=== PATIENT | female | born 1990 | race Caucasian/White ===

== ENCOUNTER 2024-11-21 13:35 | Emergency (ER) | payer BC, SELFPAY ==
--- OUTSIDE RECORDS SUMMARY | 2024-07-15 23:59 | XMS_ITS ---
Author Organization [id number] Care Team Providers Care Promotional Representative Name Role Phone Alessandra, Arias Unavailable Gela Rosenbaum Unavailable Alessandra, Arias Unavailable Unavailable Gela Rosenbaum Unavailable Unavailabl e JIM PARIS Unavailable Unavailable GELA REYES Unavailable Unavailable Alessandra, Arias Unavailable PEE VU Unavailable Unavailable GELA REYES Primary Care Provider Unavailabl e GELA ROSENBAUM Primary Care Provider Unav ailable Gela Rosenbaum Primary Care Provider Unav ailable Gela Rosenbaum Primary Care Provider Nahomi Starr Primary Care Provider Unavailabl e Allergies and Adverse Reactions Allergen Type Allergen Reactions Criticality Status Onset Date Resolution Date Documentation Date Authors Informants [facility] Allergy to drug (finding) NI active [facility] Kristine Harris ([facility]) Allergy to drug (finding) NI active [facility] Kristine Harris ([facility]) Allergy to drug (finding) Drug allergy (disorder ) active [facility] Kristine Harris ([facility]) Allergy to drug (finding) Drug allergy (disorder ) active [facility] Kristine Harris ([facility]) Allergy to drug (finding) NI active [facility] Kristine Harris ([facility]) Allergy to drug (finding) NI active [facility] Kristine Harris ([facility]) Allergy to drug (finding) NI active [facility] Kristine Harris ([facility]) Allergy to drug (finding) Drug allergy (disorder ) active [facility] Kristine Harris ([facility]) Medications Medication Sig Status Start Date End Date Authors Informant s insulin aspart, human 100 UNT/ML Injectable Solution [NovoLog] INJECT 20 UNITS TWICE DAILY , UP TO 60 UNITS A DAY VIA INSULIN PUMP DIRECTED 01/15/2024 09:32:00 AM Franny Rossi (Endocrinology [facility]) 3 ML insulin degludec 100 UNT/ML Pen Injector [Tresiba] 20 unit(s), Subcutaneous, daily, take on in case of insulin pump failure, # 15 mL, 6 Refill(s), Pharmacy: [facility]/pharmacy #[id number], 165, 09/16/23 9:45:00 EDT, Height/Length, cm, 56.245, 09/16/23 9:45:00 EDT, Weight Measured, kg 12/18/2023 12:54:00 PM Arias Aparicio (Endocrinology [facility]) insulin aspart, human 100 UNT/ML Injectable Solution [NovoLog] 20 unit(s), Subcutaneous, bid, upto 60 units a day via insulin pump as directed, # 20 mL, 5 Refill(s), Pharmacy: [facility]/pharmacy #[id number], 165, 09/16/23 9:45:00 EDT, Height/Length, cm, 56.245, 09/16/23 9:45:00 EDT, Weight Measured, kg 12/16/2023 09:54:00 AM Arias Aparicio (Endocrinology [facility]) Problems Problem Type Problem Status Onset Date Resolution Date Documentation Date Authors Informants Diagnosis interpretati on (observable entity) Non-toxic multinodula r goiter (disorder) 2024 10:40: 00 PM Diagnosis interpretati on (observable entity) Hyperglycem ia due to type 1 diabetes mellitus (disorder) 2024 10:40: 00 PM Diagnosis interpretati on (observable entity) Insulin pump present (finding) 2024 10:40: 00 PM Diagnosis interpretati on (observable entity) Insulin pump present (finding) 2024 11:00: 00 AM Diagnosis interpretati on (observable entity) Hyperglycem ia due to type 1 diabetes mellitus (disorder) 2024 10:59: 00 AM Diagnosis interpretati on (observable entity) Non-toxic multinodula r goiter (disorder) 2024 10:59: 00 AM Diagnosis interpretati on (observable entity) Hyperglycem ia due to type 1 diabetes mellitus (disorder) 2023 10:56: 00 PM Diagnosis interpretati on (observable entity) Non-toxic multinodula r goiter (disorder) 2023 10:56: 00 PM Diagnosis interpretati on (observable entity) Long-term current use of insulin (situation) 2023 10:56: 00 PM Problem (finding) Hyperglycem ia due to type 1 diabetes mellitus (disorder) Active (qualif ier value) 05/08/2022 11:40:39 AM [facility] Arias Aparicio (Endocrinol lorri [facility]) Sudden idiopathic hearing loss, left ear [facility] Problem (finding) Multinodula r goiter (disorder) Active (qualif ier value) 05/08/2022 11:40:42 AM [facility] Arias Alessandra ([facility]ocrinol o[facility] [place]) Problem (finding) Long-term current use of insulin (situation) Active (qualif ier value) 05/08/2022 11:40:41 AM [facility] Arias Alessandra ([facility] [place]) Problem (finding) Multinodula r goiter (disorder) Active (qualif ier value) 05/08/2022 11:40:42 AM [facility] Arias Alessandra ([facility] [place]) Sudden idiopathic hearing loss, [facility] ear [facility] 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 [facility] Problem (finding) Multinodula r goiter (disorder) Active (qualif ier value) 05/08/2022 11:40:42 AM [facility] Arias Alessandra ([facility] [place]) Problem (finding) Multinodula r goiter (disorder) Active (qualif ier value) 05/08/2022 11:40:42 AM [facility] Arias Alessandra ([facility] [place]) Problem (finding) Hyperglycem ia due to type 1 diabetes mellitus (disorder) Active (qualif ier value) 05/08/2022 11:40:39 AM [facility] Arias Alessandra ([facility] [place]) Problem (finding) Hyperglycem ia due to type 1 diabetes mellitus (disorder) Active (qualif ier value) 05/08/2022 11:40:39 AM [facility] Arias Alessandra ([facility] [place]) Problem (finding) Long-term current use of insulin (situation) Active (qualif ier value) 05/08/2022 11:40:41 AM [facility] Arias Alessandra ([facility] [place]) Problem (finding) Insulin pump present (finding) Active (qualif ier value) 04/12/2024 11:00:44 AM [facility] Arias Alessandra ([facility] [place]) Problem (finding) Long-term current use of insulin (situation) Active (qualif ier value) 05/08/2022 11:40:41 AM [facility] Arias Alessandra ([facility] [place]) Problem (finding) Multinodula r goiter (disorder) Active (qualif ier value) 05/08/2022 11:40:42 AM [facility] Arias Alessandra ([facility] [place]) Problem (finding) Multinodula r goiter (disorder) Active (qualif ier value) 05/08/2022 11:40:42 AM [facility] Arias Alessandra ([facility] [place]) Problem (finding) Hyperglycem ia due to type 1 diabetes mellitus (disorder) Active (qualif ier value) 05/08/2022 11:40:39 AM [facility] Arias Alessandra ([facility] [place]) Tinnitus, left ear [facility] Problem (finding) Hyperglycem ia due to type 1 diabetes mellitus (disorder) Active (qualif ier value) 05/08/2022 11:40:39 AM [facility] Arias Alessandra ([facility] [place]) Problem (finding) Hyperglycem ia due to type 1 diabetes mellitus (disorder) Active (qualif ier value) 05/08/2022 11:40:39 AM [facility] Raias Alessandra ([facility]ol [facility] [place]) Problem (finding) Long-term current use of insulin (situation) Active (qualif ier value) 05/08/2022 11:40:41 AM [facility] Arias Alessandra ([facility] [place]) Problem (finding) Multinodula r goiter (disorder) Active (qualif ier value) 05/08/2022 11:40:42 AM [facility] Arias Alessandra ([facility] [place]) Impacted cerumen, bilateral [facility] Presence of insulin pump (external) (internal) [facility] Nontoxic multinodula r goiter [facility] Other specified disorders of ear, bilateral [facility] Problem (finding) Hyperglycem ia due to type 1 diabetes mellitus (disorder) Active (qualif ier value) 05/08/2022 11:40:39 AM [facility] Arias Alessandra ([facility]ocr[facility]ol [facility] [place]) Personal history of other endocrine, nutritional and metabolic disease [facility] Sensorineur al hearing loss, unilateral, left ear, with unrestricte d hearing on the contralater al side [facility] Problem (finding) Long-term current use of insulin (situation) Active (qualif ier value) 05/08/2022 11:40:41 AM [facility] Arias Alessandra ([facility]ol [facility] [place]) Problem (finding) Long-term current use of insulin (situation) Active (qualif ier value) 05/08/2022 11:40:41 AM [facility] Arias Alessandra ([facility]ol [facility] [place]) Problem (finding) Hyperglycem ia due to type 1 diabetes mellitus (disorder) Active (qualif ier value) 05/08/2022 11:40:39 AM [facility] Arias Alessandra ([facility]ol [facility] [place]) 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 [facility] Problem (finding) Insulin pump present (finding) Active (qualif ier value) 04/12/2024 11:00:44 AM [facility] Arias Alessandra ([facility]ol [facility] [place]) Unspecified perforation of tympanic membrane, left ear [facility] Problem (finding) Long-term current use of insulin (situation) Active (qualif ier value) 05/08/2022 11:40:41 AM [facility] Arias Alessandra ([facility]ol [facility] [place]) Problem (finding) Long-term current use of insulin (situation) Active (qualif ier value) 05/08/2022 11:40:41 AM [facility] Arias Alessandra ([facility]ol [facility] [place]) Problem (finding) Hyperglycem ia due to type 1 diabetes mellitus (disorder) Active (qualif ier value) 05/08/2022 11:40:39 AM [facility] Arias Alessandra ([facility] [place]) Problem (finding) Multinodula r goiter (disorder) Active (qualif ier value) 05/08/2022 11:40:42 AM [facility] Arias Alessandra (Endocrinol o[facility] [place]) Type 1 diabetes mellitus with hyperglycem [facility] Nontoxic multinodula r goiter [facility] Type 1 diabetes mellitus with hyperglycem [facility] [place] Problem (finding) Multinodula r goiter (disorder) Active (qualif ier value) 05/08/2022 11:40:42 AM [facility] Arias Alessandra ([facility]ol [facility] [place]) Problem (finding) Long-term current use of insulin (situation) Active (qualif ier value) 05/08/2022 11:40:41 AM [facility] Arias Alessandra (Endocrinol o[facility] [place]) Procedures Procedure Date Performers Authors Informants Note None Arias Alessandra ([facility]inology [facility] [place]) Results Written Authorization Result Value Reference Range Date Interpretation Method Target Site Authors Informants Written Authorization NWAR 08/07 11:00 AM [facility] No Written Authorization Rec eived. Performed At: [facility] [address] [place] [address], [id number] Kandis Luu MD, Phone: [phone] Lipid Panel Result Value Reference Range Date Interpretation Method Target Site Authors Informants HDL Cholesterol 62 mg/dL >39 07/17 01:48 AM [facility] VLDL Cholesterol Mario Alberto 12 mg/dL 5-40 07/17 01:48 AM [facility] LDL Chol Calc (NIH) 84 mg/dL 0-99 07/17 01:48 AM [facility] LDL Calc Comment: 07/17 01:48 AM [facility] Cholesterol, Total 158 mg/dL 100-199 07/17 01:47 AM [facility] Triglycerides 62 mg/dL 0-149 07/17 01:44 AM Sami RN Performed At: RN, [facility] [address], [id number] Kandis Luu MD, Phone: [phone] Microscopic Examination Result Value Reference Range Date Interpretation Method Target Site Authors Informants WBC 0 - 5 2024 01:02 AM [facility] RN RBC 0 - 2 2024 01:02 AM [facility] RN Epithelial Cells (non renal) 0 - 10 2024 01:02 AM [facility] RN Epithelial Cells (renal) 2024 01:02 AM [facility] RN Casts None seen 2024 01:02 AM [facility] RN Cast Type 2024 01:02 AM [facility] RN Crystals 2024 01:02 AM [facility] RN Crystal Type 2024 01:02 AM [facility] RN Mucus Threads 2024 01:02 AM [facility] RN Bacteria None seen None seen/Few 2024 01:02 AM [facility] RN Yeast 2024 01:02 AM [facility] RN Trichomonas 2024 01:02 AM [facility] RN Comment 2024 01:02 AM [facility] RN Performed At: RN, [facility] [address] [place] [address], [id number] Kandis Luu MD, Phone: [phone] Urinalysis, Routine Result Value Reference Range Date Interpretation Method Target Site Authors Informants Specific [place] 1.008 1.005-1.03 0 07/16 12:19 AM [facility] RN pH 6.0 5.0-7.5 07/16 12:19 AM [facility] RN Urine-Color Yellow Yellow 07/16 12:19 AM [facility] RN Appearance Clear Clear 07/16 12:19 AM [facility] RN WBC Esterase 3+ Negative 07/16 12:19 AM A [facility] RN Protein Negative Negative/T race 07/16 12:19 AM [facility] RN Glucose Negative Negative 07/16 12:19 AM [facility] RN Ketones Negative Negative 07/16 12:19 AM [facility] RN Occult Blood Negative Negative 07/16 12:19 AM [facility] RN Bilirubin Negative Negative 07/16 12:19 AM [facility] RN Urobilinogen, Semi-Qn 0.2 mg/dL 0.2-1.0 07/16 12:19 AM [facility] RN Nitrite, Urine Negative Negative 07/16 12:19 AM [facility] RN Microscopic Examination See below: 07/16 12:19 AM [facility] RN Microscopic was indicated an d was performed. Performed At: RN, [facility] [address] [place] [address], [id number] Kandis Luu MD, Phone: [phone] Comp. Metabolic Panel (14) Result Value Reference Range Date Interpretation Method Target Site Authors Informants Calcium 9.0 mg/dL 8.7-10.2 2024 01:45 AM [facility] RN Protein, Total 6.6 g/dL 6.0-8.5 2024 12:25 AM [facility] RN Globulin, Total 2.1 g/dL 1.5-4.5 2024 12:25 AM [facility] RN Bilirubin, Total 0.3 mg/dL 0.0-1.2 2024 12:22 AM [facility] RN BUN 8 mg/dL 6-20 2024 12:20 AM [facility] RN BUN/Creatinin e Ratio 13 9-23 2024 12:20 AM [facility] RN Alkaline Phosphatase 75 IU/L 44-121 2024 12:20 AM [facility] RN Glucose 117 mg/dL 70-99 2024 12:19 AM Above high normal [facility] RN Creatinine 0.63 mg/dL 0.57-1.00 2024 12:19 AM [facility] RN eGFR 119 mL/min/ 1.73 >59 2024 12:19 AM [facility] RN Albumin 4.5 g/dL 3.9-4.9 2024 12:19 AM [facility] RN AST (SGOT) 16 IU/L 0-40 2024 12:19 AM [facility] RN ALT (SGPT) 11 IU/L 0-32 2024 12:19 AM [facility] RN Carbon Dioxide, Total 26 mmol/L 20-29 2024 12:18 AM [facility] RN Potassium 4.1 mmol/L 3.5-5.2 2024 11:48 PM [facility] RN Sodium 137 mmol/L 134-144 2024 11:46 PM [facility] RN Chloride 100 mmol/L 96-106 2024 11:46 PM [facility] RN Performed At: [facility] [address] [place] [address], [id number] Kandis Luu MD, Phone: [phone] Diabetes Patient Education Result Value Reference Range Date Interpretation Method Target Site Authors Informants PDF . 2023 04:24 PM [facility] Performed At: [employer] [address] [facility], [place], [place], [id number] Paco Black MD, Phone: [phone] Albumin/Creatinine Ratio,Urine Result Value Reference Range Date Interpretation Method Target Site Authors Informants Albumin, Urine Not Estab. 2023 03:47 PM [facility] RN Alb/Creat Ratio 0-29 2023 03:47 PM [facility] RN Normal: 0 - 29 Moderately increased: 30 - 300 Severely increased: >300 Creatinine, Urine 39.2 mg/dL Not Estab. 2023 03:46 PM [facility] RN Performed At: [facility] [place], [place], [id number] Kandis Luu MD, Phone: [phone] TSH reflex to T4F Result Value Reference Range Date Interpretation Method Target Site Authors Informants TSH 1.180 uIU/mL 0.450-4.500 2023 05:15 AM [facility] RN Performed At: [facility] [place], [place], [id number] Kandis Luu MD, Phone: [phone] Lipid Panel Result Value Reference Range Date Interpretation Method Target Site Authors Informants Cholesterol, Total 122 mg/dL 100-199 01/13 04:40 AM [facility] RN Triglycerides 63 mg/dL 0-149 01/13 04:40 AM [facility] RN HDL Cholesterol 51 mg/dL >39 01/13 04:40 AM [facility] RN VLDL Cholesterol Mario Alberto 13 mg/dL 5-40 01/13 04:40 AM [facility] RN LDL Chol Calc ([facility]) 58 mg/dL 0-99 01/13 04:40 AM [facility] RN LDL Calc Comment: 01/13 04:40 AM [facility] RN Performed At: [facility] [address] [place] [address], [id number] Kandis Luu MD, Phone: [phone] Comp. Metabolic Panel (14) Result Value Reference Range Date Interpretation Method Target Site Authors Informants Potassium 4.8 mmol/L 3.5-5.2 2023 04:41 AM [facility] RN Sodium 137 mmol/L 134-144 2023 04:[address] [facility] RN Chloride 102 mmol/L 96-106 2023 04:40 AM [facility] RN Albumin 4.2 g/dL 3.9-4.9 2023 04:39 AM [facility] RN Globulin, Total 2.0 g/dL 1.5-4.5 2023 04:39 AM [facility] RN Protein, Total 6.2 g/dL 6.0-8.5 2023 04:37 AM [facility] RN Glucose 308 mg/dL 70-99 2023 04:36 AM Above high normal [facility] RN BUN 9 mg/dL 6-20 2023 04:36 AM [facility] RN Creatinine 0.61 mg/dL 0.57-1.00 2023 04:36 AM [facility] RN eGFR 120 mL/min/ 1.73 >59 2023 04:36 AM [facility] RN BUN/Creatinin e Ratio 15 9-23 2023 04:36 AM [facility] RN Carbon Dioxide, Total 23 mmol/L 20-29 2023 04:36 AM [facility] RN Calcium 8.6 mg/dL 8.7-10.2 2023 04:36 AM Below low normal [facility] RN Bilirubin, Total 0.3 mg/dL 0.0-1.2 2023 04:36 AM [facility] RN Alkaline Phosphatase 73 IU/L 44-121 2023 04:36 AM [facility] RN AST (SGOT) 10 IU/L 0-40 2023 04:36 AM [facility] RN ALT (SGPT) 6 IU/L 0-32 2023 04:36 AM [facility] RN Performed At: [facility] [address] [place] [address], [id number] Kandis Luu MD, Phone: [phone] Hemoglobin A1c Result Value Reference Range Date Interpretation Method Target Site Authors Informants Hemoglobin A1c 7.6 % 4.8-5.6 2023 01:52 AM Above high normal [facility] . Prediabetes: 5.7 - 6.4 Diabetes: >6.4 Glycemic control for adults with diabetes: <7.0 Performed At: [facility] [address] [place] [address], [id number] Kandis Luu MD, Phone: [phone] Encounters Encounter Location Date Diagnoses Problems Providers Authors Inf ormants Note O ENDF 07/15 08:45 :48 AM - 07/15 11:59 :59 PM Type 1 diabetes mellitus with hyperglycemi a Nontoxic multinodular goiter Presence of insulin pump (external) (internal) Admitter: Arias Aparicio ([facility]) Referrer: Gela Rosenbaum ([facility]) Attender: Arias Aparicio ([facility]) [facility] O [id number] 08/07 11:05 AM [facility] O [id number] 07/16 08:35 AM [facility] ([address] [place] [address], [address] [place] [address]) 07/15 08:45 :48 AM - 07/15 11:59 :59 PM Hyperglycemi a due to type 1 diabetes mellitus (disorder) Insulin pump present (finding) Non-toxic multinodular goiter (disorder) Referrer: Gela Rosenbaum ([facility]) Attender: Arias Aparicio ([facility]) Arias Aparicio ([facility]) Gela Rosenbaum ([facility]) [facility] 04/28 11:40 :30 AM Sensorineura l hearing loss, unilateral, left ear, with unrestricted hearing on the contralatera l side Tinnitus, left ear Sudden idiopathic hearing loss, left ear Personal history of other endocrine, nutritional and metabolic disease Impacted cerumen, bilateral Other specified disorders of ear, bilateral Referrer: GELA REYES ([facility]) Attender: PEE VU ([facility]) [facility] 04/28 11:39 :31 AM - 04/28 12:10 :34 PM Sensorineura l hearing loss, unilateral, left ear, with unrestricted hearing on the contralatera l side Tinnitus, left ear Referrer: GELA REYES ([facility]) Attender: JIM PARIS ([facility]) [facility] O ENDF 04/12 11:01 :14 AM - 04/12 11:59 :59 PM Type 1 diabetes mellitus with hyperglycemi a Nontoxic multinodular goiter Presence of insulin pump (external) (internal) Admitter: Arias Aparicio ([facility]) Referrer: Gela Rosenbaum ([facility]) Attender: Arias Aparicio ([facility]) 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: Arias Aparicio ([facility]) [facility] ([address] [place] [address], [address] [place], [place] [address]) 04/12 11:01 :14 AM - 04/12 11:59 :59 PM Hyperglycemi a due to type 1 diabetes mellitus (disorder) Non-toxic multinodular goiter (disorder) Insulin pump present (finding) Referrer: Gela Rosenbaum ([facility]) Attender: Arias Aparicio ([facility]) Arias Aparicio ([facility]) Gela Rosenbaum ([facility]) [facility] 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 (1) 03/23 10:53 :35 AM - 03/23 11:59 :59 PM [facility] ([address] [place] [address], [address] [place] [address]- ) 01/14 09:30 :12 AM - 01/14 11:59 :59 PM Hyperglycemi a due to type 1 diabetes mellitus (disorder) Non-toxic multinodular goiter (disorder) Long-term current use of insulin (situation) Referrer: Gela Rosenbaum ([facility]) Attender: Arias Aparicio ([facility]) Arias Aparicio ([facility]) Gela Rosenbaum ([facility]) [facility]ocrin[facility] O ENDF 01/14 09:30 :12 AM Type 1 diabetes mellitus with hyperglycemi a Nontoxic multinodular goiter [facility] (current) use of insulin Admitter: Arias Aparicio ([facility]) Referrer: Gela Rosenbaum ([facility]) Attender: Arias Aparicio ([facility]) [facility] O [id number] 01/13 05:05 PM [facility] Insurance Providers Payer name Policy type / Coverage type Policy ID Covered alliance party ID Covered alliance party's relationship to ward Policy Ward Plan Information [facility] PROACTIVE EXCHANGE Self VERONICA LARISSA [id number] [facility] PRO[facility] Self VERONICA LARISSA [id number] [employer] 9 [id number] VERONICA LARISSA [employer] 9 [id number] VERONICA LARISSA [employer] 9 [id number] VERONICA LARISSA [employer] 9 [id number] VERONICA LARISSA [employer] 9 [id number] VERONICA LARISSA [employer] 9 [id number] VERONICA LARISSA [facility] PRO[facility]CH[facility] Self VERONICA LARISSA [id number] [employer] [id number] [employer] [id number] [employer] NI [id number] [employer] 9 [id number] VERONICA LARISSA [employer] 9 [id number] VERONICA LARISSA Social History Social History Value Effective Dates Authors Infor gias Tobacco smoking status Never smoked tobacco (finding) 01/15/2024 01:32:39 PM Franny Rossi ([facility] [place]) Tobacco smoking status Never smoked tobacco (finding) 01/15/2024 01:32:39 PM Franny Rossi ([facility]ocrin[facility] [place]) Tobacco smoking status Never smoked tobacco (finding) 01/15/2024 01:32:39 PM Franny Rossi ([facility]ocrin[facility] [place]) Tobacco smoking status Never smoked tobacco (finding) 01/15/2024 01:32:39 PM Franny Rossi ([facility] [place]) Tobacco smoking status Never 01/15/2024 01:32:39 PM Franny Rossi ([facility] [place]) Tobacco smoking status Never 09/16/2023 01:48:54 PM Franny Rossi ([facility] [place]) Tobacco smoking status Never 01/15/2024 01:32:39 PM Franny Rossi ([facility] [place]) Tobacco smoking status Never 01/15/2024 01:32:39 PM Franny Rossi ([facility] [place]) Tobacco smoking status Never 05/08/2022 06:49:54 PM Arias Alessandra ([facility]in[facility] [place]) Tobacco smoking status Never 05/08/2022 06:49:54 PM Arias Alessandra ([facility] [place]) Tobacco smoking status Never 05/08/2022 06:49:54 PM Arias Alessandra ([facility] [place]) Tobacco smoking status Never 01/15/2024 01:32:39 PM Franny Rossi ([facility] [place]) Tobacco smoking status Never 05/08/2022 06:49:54 PM Arias Alessandra ([facility] [place]) Vital Signs Vital Sign Value Time Taken Authors Informants Body height 65 [in_i] 01/15/2024 09:30:00 AM [facility] Franny Rossi (Endocrinology [place]) Body height 165.10 cm 01/15/2024 09:30:00 AM [facility] Franny Rossi (Endocrinology [place]) Body weight Measured 56.699 kg 01/15/2024 09:30:00 AM [facility] Franny Rossi (Endocrinology [place]) Body mass index (BMI) [Ratio] 21 kg/m2 01/15/2024 09:30:00 AM [facility] Franny Rossi (Endocrinology [place]) Body height 65.5 [in_i] 04/12/2024 11:11:00 AM [facility] Becky Seals (Endocrin[facility] [place]) Body height 166 cm 04/12/2024 11:11:00 AM [facility] Becky Seals (Endocrinology [place]) Body weight Measured 56 kg 04/12/2024 11:11:00 AM [facility] Becky Seals (Endocrinology [place]) Body mass index (BMI) [Ratio] 20 kg/m2 04/12/2024 11:11:00 AM [facility] Becky Seals (Endocrinology [facility])
[2024-11-21 13:59] VITALS: BP 124/55; PULSE 84; RESP 17; TEMP 36.3; O2SAT 99; BMI 21.5
--- NOTE | 2024-11-21 14:03 | ED.GENADULT ---
HPI - General Adult General Chief complaint: Recheck/Abnormal Lab/Rx Stated complaint: high blood sugar type 1 diabetic Time Seen by Provider: 11/21/24 16:03 Source: patient and RN notes reviewed Mode of arrival: ambulatory Limitations: no limitations History of Present Illness ED Provider: Angela Figueroa PA-C HPI narrative: 34-year-old female with medical history of T1DM presents to the ED due to home elevated glucose readings with nausea and vomiting. Patient has an Omnipod insulin pump and CGM, last night CGM was alerting her of elevated glucose readings but she was sleeping in ignored the alert. Patient said when she woke up this morning she realized her Omnipod was leaking insulin and she was getting continuous elevated glucose readings. Patient also reports waking up this morning feeling ?out of it? and when asked her to explain this she states that she just felt ?off?, with nausea and 2 episodes of vomiting. Patient states she gave herself 7 units of insulin after breakfast, 7 units after elevated POC at home, and 7 additionally units while in the waiting room before eating a snack of crackers, applesauce, nuts and coconut water. Patient states her symptoms are improving. Denies recent illness, chest pain, shortness of breath, abdominal pain, diarrhea, black/tarry stool, urinary symptoms Related Data Allergies Allergy/AdvReac Type Severity Reaction Status Date / Time No Known Allergies Allergy Verified 11/21/24 14:05 Review of Systems Review of Systems: CONST: Negative for fever, body aches and chills. HENT: Negative for neck pain/stiffness, headache, congestion, sore throat, swelling. POS head fog, feeling off EYES: Negative for discharge/pain or vision changes. RESP: Negative for cough/hemoptysis and shortness of breath. CV: Negative chest pain, difficulty breathing, palpitations. ABD: Negative pain, nausea, vomiting. POS nausea, vomiting : Negative increase frequency, dysuria, blood in urine or stool. MUSC: Negative for muscle aches, edema. SKIN: Negative rash, lesions/sores. NEURO: Negative headache, dizziness, weakness. Yes all other systems are reviewed and are negative PMFSH Past Medical History Attestation statement: The following information was validated with the patient. Source: old records reviewed and nursing notes reviewed Social History Social History Advance Directives: No Advance Directives Information Provided: Yes Do you have a plan to hurt others: No Plan Physical Exam ED Vital Signs: Vital Signs - 24 hr 11/21/24 13:59 11/21/24 18:11 Temperature 97.4 F 98.1 F Pulse Rate 84 84 Respiratory Rate 17 18 Blood Pressure 124/55 L 128/59 L Pulse Oximetry 99 100 Oxygen Delivery Method Room Air Room Air BMI result Body Mass Index 21.5 GENERAL APPEARANCE: ?AxOx4, generally well-appearing, no acute distress. HEENT: ?NC, AT. MMM. EOMI, clear conjunctiva, oropharynx clear. NECK: ?Supple without lymphadenopathy.? No stiffness or restricted ROM. HEART:? Normal rate and regular rhythm, normal S1/S2, no m/r/g LUNGS:? CTAB, moving air well. No crackles or wheezes are heard, no increased work of breathing, no accessory muscle use, no Kussmaul respirations ABDOMEN: ?Soft, nontender, nondistended with good bowel sounds heard. BACK: No CVAT, no obvious deformity. EXTREMITIES: ?Without cyanosis, clubbing or edema. NEUROLOGICAL: ?Grossly nonfocal. Alert and oriented, moving all 4 extremities. Observed to ambulate with normal gait. Skin: ?Warm and dry without any rash. Course Course Course Narrative: Medical screening exam performed. Please refer to detailed history, exam, evaluation, and management by primary provider. Type 1 diabetes, insulin device became dislodged did not receive appropriate insulin but patient was able to dose herself. Glucose 395 at triage. Did have associated weakness, nausea and vomiting. Medications Administered Discontinued Medications Generic Name Dose Route Start Last Admin Trade Name Freq PRN Reason Stop Dose Admin Lactated Ringer's 1,000 mls @ 999 mls/hr 11/21/24 16:08 11/21/24 17:41 Lr IV 11/21/24 17:08 Infused .Q1H1M ONE Infusion Lactated Ringer's 1,000 mls @ 999 mls/hr 11/21/24 17:00 11/21/24 18:09 Lr IV 11/21/24 18:00 Infused .Q1H1M MANUEL Infusion Ondansetron HCl 4 mg 11/21/24 16:45 11/21/24 17:08 Ondansetron Hcl 4 Mg/2 Ml Vial IVPUSH 11/21/24 16:46 4 mg ONCE ONE Administration Medical Decision Making Medical Decision Making [facility] Narrative: 34-year-old female with medical history of T1DM presents to the ED due to home elevated glucose readings with nausea and vomiting. Patient has an Omnipod insulin pump and CGM, last night CGM was alerting her of elevated glucose readings but she was sleeping in ignored the alert. Patient said when she woke up this morning she realized her Omnipod was leaking insulin and she was getting continuous elevated glucose readings. Patient also reports waking up this morning feeling ?out of it? and when asked her to explain this she states that she just felt ?off?, with nausea and 2 episodes of vomiting. Patient states she gave herself 7 units of insulin after breakfast, 7 units after elevated POC at home, and 7 additional units while in the waiting room before eating a snack of crackers, applesauce, nuts and coconut water. Patient states her symptoms are improving. VS on initial observation-BP 124/55, pulse rate of 84, respiratory rate of 17, afebrile with oral temp of 97.4?, O2 saturation 99% on room air. On physical exam patient is well-appearing, in no acute distress, nontoxic appearing, alert and oriented x3, no Kussmaul breathing, no increased work of breathing, lungs clear to auscultation bilaterally, cardiac exam shows regular rate and rhythm without murmurs/rubs/gallops, abdomen soft, nondistended, nontender, no rigidity Course 17:44- Labs without leukocytosis, H and H stable with HGB of 11.9, HCT of 34.2. VBG with decrease HC03 at 20, sodium of 130, however this is pseudohyponatremia due to elevated blood glucose. Random glucose of 375, without anion gap, beta hydroxybutyrate elevated at 2.74. I am medicating patient with 2 L IV fluids, 4 mg Zofran for nausea. We will recheck BMP and beta hydroxybutyrate for improvement after fluids. 21:08- After fluid resuscitation, repeat BNP much improved. Lab work without anion gap, serum glucose 269, sodium of 139, beta hydroxybutyrate now at 0.13. Patient to be discharged home, I counseled her to follow up with her electro optical engineer and primary care provider as she may need to change her insulin regimen for better glycemic control. Differential Diagnosis Differential Diagnoses: The differential diagnosis associated with the presentation includes DKA Electrolyte abnormality Elevated blood glucose Admission/Observation Consideration of admission/observation: Escalation of care including admission/observation considered Lab Data [facility] Lab Attestation statement: I reviewed the patient's lab results. 11/21/24 14:58 11/21/24 14:58 Labs: Lab Results 11/21/24 11/21/24 11/21/24 Range/Units 14:03 14:58 15:01 WBC 10.6 (4.8-10.8) X10*3/uL RBC 4.07 L (4.20-5.50) X10*6/uL Hgb 11.9 L (12.0-16.0) g/dl Hct 34.2 L (37.0-47.0) % MCV 84.0 (80.0-98.0) fL MCH 29.2 (27.0-33.0) pg MCHC 34.8 (31.0-35.0) g/dl RDW 12.7 (11.0-16.0) % Plt Count 176 (160-400) X10*3/uL MPV 11.9 (9.4-12.3) fL Immature Gran % (Auto) 0.2 (0.0-0.4) % Neut % (Auto) 81.4 H (45-73) % Lymph % (Auto) 12.1 L (20-40) % [place] % (Auto) 5.3 (2-11) % Eos % (Auto) 0.5 (0-4) % Baso % (Auto) 0.5 (0-2) % Lymph # (Auto) 1.3 (1.2-4.9) X10*3/uL [place] # (Auto) 0.6 (0.1-1.2) X10*3/uL Eos # (Auto) 0.1 (0.0-0.4) X10*3/uL Baso # (Auto) 0.1 (0.0-0.2) X10*3/uL Abs Immat Gran (auto) 0.02 (0.00-0.03) X10*3/uL Absolute Neuts (auto) 8.6 H (2.0-8.3) x10*3/uL Absolute Nucleated RBC 0.000 (0.0-0.012) X10*3/uL Nucleated RBC % (auto) 0.0 (0.0-0.2) /100WBC VBG pH 7.32 (7.32-7.43) VBG pCO2 38 mmHg VBG pO2 36 mmHg VBG HCO3 20 L (22-26) mmol/L VBG O2 Saturation 51.0 % VBG Base Excess -5.5 mmol/L Sodium 130 L (135-145) mmol/L Potassium 4.5 (3.3-5.1) mmol/L Chloride 97 (96-108) mmol/L Carbon Dioxide 19 L (22-29) mmol/L Anion Gap 19 (12-20) BUN 18 H (9-16) mg/dL Creatinine 0.77 (0.5-1.4) mg/dL Estim Creat Clear Calc 91.7 Estimated GFR > 60 POC Glucose 395 H* (60-115) mg/dL Random Glucose 375 H* (60-115) mg/dL Calcium 9.1 (8.4-10.2) mg/dL Magnesium 1.7 (1.6-2.6) mg/dL Total Bilirubin 0.8 (0.0-1.0) mg/dL AST 21 (5-31) U/L ALT 17 (0-31) U/L Alkaline Phosphatase 84 (39-117) U/L Total Protein 7.3 (6.5-8.0) g/dL Albumin 4.8 (3.5-5.0) g/dL Lipase 10 (8-78) U/L Beta-Hydroxybutyrate 2.74 H (0.02-0.27) mmol/L Beta HCG, Quant < 2 mIU/mL Urine Color Urine Appearance Urine pH (5.0-9.0) Ur Specific [place] (1.005-1.025) Urine Protein (Neg-Trace) mg/dL Urine Glucose (UA) (Negative) mg/dL Urine Ketones (Negative) mg/dL Urine Blood (Negative) Urine Nitrite (Negative) Ur Leukocyte Esterase (Negative) Urine RBC (0-2) /HPF Urine WBC (0-5) /HPF Ur Squamous Epith Cells (0-2) /HPF Urine Bacteria (None Seen) Hyaline Casts (0-2) /LPF 11/21/24 11/21/24 Range/Units 16:49 19:06 WBC (4.8-10.8) X10*3/uL RBC (4.20-5.50) X10*6/uL Hgb (12.0-16.0) g/dl Hct (37.0-47.0) % MCV (80.0-98.0) fL MCH (27.0-33.0) pg MCHC (31.0-35.0) g/dl RDW (11.0-16.0) % Plt Count (160-400) X10*3/uL MPV (9.4-12.3) fL Immature Gran % (Auto) (0.0-0.4) % Neut % (Auto) (45-73) % Lymph % (Auto) (20-40) % [place] % (Auto) (2-11) % Eos % (Auto) (0-4) % Baso % (Auto) (0-2) % Lymph # (Auto) (1.2-4.9) X10*3/uL [place] # (Auto) (0.1-1.2) X10*3/uL Eos # (Auto) (0.0-0.4) X10*3/uL Baso # (Auto) (0.0-0.2) X10*3/uL Abs Immat Gran (auto) (0.00-0.03) X10*3/uL Absolute Neuts (auto) (2.0-8.3) x10*3/uL Absolute Nucleated RBC (0.0-0.012) X10*3/uL Nucleated RBC % (auto) (0.0-0.2) /100WBC VBG pH (7.32-7.43) VBG pCO2 mmHg VBG pO2 mmHg VBG HCO3 (22-26) mmol/L VBG O2 Saturation % VBG Base Excess mmol/L Sodium (135-145) mmol/L Potassium (3.3-5.1) mmol/L Chloride (96-108) mmol/L Carbon Dioxide (22-29) mmol/L Anion Gap (12-20) BUN (9-16) mg/dL Creatinine (0.5-1.4) mg/dL Estim Creat Clear Calc Estimated GFR POC Glucose 246 H (60-115) mg/dL Random Glucose (60-115) mg/dL Calcium (8.4-10.2) mg/dL Magnesium (1.6-2.6) mg/dL Total Bilirubin (0.0-1.0) mg/dL AST (5-31) U/L ALT (0-31) U/L Alkaline Phosphatase (39-117) U/L Total Protein (6.5-8.0) g/dL Albumin (3.5-5.0) g/dL Lipase (8-78) U/L Beta-Hydroxybutyrate (0.02-0.27) mmol/L Beta HCG, Quant mIU/mL Urine Color Yellow Urine Appearance Clear Urine pH 5.5 (5.0-9.0) Ur Specific [place] 1.010 (1.005-1.025) Urine Protein Negative (Neg-Trace) mg/dL Urine Glucose (UA) >=1000 H (Negative) mg/dL Urine Ketones 40 (Negative) mg/dL Urine Blood Negative (Negative) Urine Nitrite Negative (Negative) Ur Leukocyte Esterase Negative (Negative) Urine RBC 0-2 (0-2) /HPF Urine WBC 0-5 (0-5) /HPF Ur Squamous Epith Cells 0-2 (0-2) /HPF Urine Bacteria None Seen (None Seen) Hyaline Casts 0-2 (0-2) /LPF External Record Review External record reviewed: Inpatient record, Office record and Outpatient record Chronic Conditions Patient?s care impacted by: Diabetes (T1DM) Discharge Plan Discharge Clinical Impression: Blood glucose elevated Patient Disposition: Home, Self-Care Instructions: Diabetic Hyperglycemia (ED) Additional Instructions: You were evaluated in the emergency department today after elevated blood glucose readings on your GCM. Your initial blood work revealed a serum glucose of 375, decreased sodium of 130, an elevated beta hydroxybutyrate which is a ketone that is released in the blood with elevated glucose, without evidence of anion gap which occurs in DKA. You were given 2 L of IV fluids, and 4 mg of Zofran for nausea. After administration of fluids your lab work improved, your sodium increased to normal range of 139, beta hydroxybutyrate is now in range at 0.13. I recommend that you follow up with your electro optical engineer and primary care provider for possible change in your insulin regimen for better glycemic control. Please return to the emergency department if you experience fevers over 100.4?, chest pain, shortness of breathing, difficulty breathing, increased work of breathing, abdominal pain, nausea, vomiting, confusion, or any new/worsening/concerning symptoms. Print Language: Greek
[2024-11-21 14:11] LABS: Glucose, Whole Blood 395 mg/dL (60-115)
[2024-11-21 15:05] LABS: MANUAL DIFF FLAG NO
[2024-11-21 15:06] LABS: VBG HCO3 20 mmol/L (22-26); VBG O2 % Saturation 51.0 %
[2024-11-21 15:06] LABS: Hematocrit 34.2 % (37.0-47.0); Hemoglobin 11.9 g/dl (12.0-16.0); Imm Gran Abs Auto 0.02 X10*3/uL (0.00-0.03); Imm Gran Pct Auto 0.2 % (0.0-0.4); Lymphocytes Absolute Auto 1.3 X10*3/uL (1.2-4.9); Mean Corpuscular HGB Conc 34.8 g/dl (31.0-35.0); Mean Corpuscular Hemoglobin 29.2 pg (27.0-33.0); Mean Corpuscular Volume 84.0 fL (80.0-98.0); NRBC Abs Auto 0.000 X10*3/uL (0.0-0.012); NRBC Pct Auto 0.0 /100WBC (0.0-0.2); Platelet Count 176 X10*3/uL (160-400); Red Blood Count 4.07 X10*6/uL (4.20-5.50); White Blood Count 10.6 X10*3/uL (4.8-10.8)
[2024-11-21 15:07] LABS: Venous Blood Gas Refer to POC result
[2024-11-21 15:26] LABS: Alanine Aminotransferase 17 U/L (0-31); Albumin Level 4.8 g/dL (3.5-5.0); Alkaline Phosphatase 84 U/L (39-117); Anion Gap 19 (12-20); Aspartate Amino Transferase 21 U/L (5-31); Blood Urea Nitrogen 18 mg/dL (9-16); Calcium 9.1 mg/dL (8.4-10.2); Carbon Dioxide 19 mmol/L (22-29); Chloride 97 mmol/L (96-108); Creatinine Clr Calc Pharmacy 91.7; Estimated Glomerular Filt Rate > 60; Lipase 10 U/L (8-78); Magnesium 1.7 mg/dL (1.6-2.6); Potassium 4.5 mmol/L (3.3-5.1); Sodium 130 mmol/L (135-145); Total Protein 7.3 g/dL (6.5-8.0)
--- OUTSIDE RECORDS SUMMARY | 2024-11-21 16:37 | XMS_ITS | Encounter Summary ---
Author Organization [facility] Address [address] [place] [address] Phone Care Team Providers Care Oracle Forms Developer Name Role Phone Fly Carpio MD Primary Care Provider Eric Davenport MD Primary Care Provider Palak reid Source Comments This summary of care document has been generated from [facility]. It contains important information for the transfer of care, and complies with [facility] Meaningful Use requirements. If you have received this document in error, please contact [facility] by calling [phone]-[facility], or email us at: [email or web address] Encounter Details Date Type Department Care Team (Late st Contact Info) Description 07/15/2005 [place] [address] Eric Eubanks MD [address] [place] [address] Social History Tobacco Use Types Packs/Day Years Used Date Smoking Tobacco: Never Assessed Comments Unknown Sex and Gender Information Value Date Recorded Sex Assigned at Not on file Legal Sex Female 10:08 AM EST Gender Identity Not on file Sexual Orientation Not on file documented as of this encounter Plan of Treatment Not on file documented as of this encounter Procedures Procedure Name Priority Date/Time Associated Diagnosis Comments HEMOGLOBIN A1C, POC Routine 07/15/2005 1 1:35 AM EDT documented in this encounter Results * (ABNORMAL) HEMOGLOBIN A1C - POINT OF CARE (07/15/2005 11:35 AM EDT) Hemoglobin A1C, POC 9.8(H) 3.8 - 5.9 % HOSPITAL LAB Comment: TEST PERFORMED AT [facility], [address] [place], [place] [address], [place] [address], AKASH YOUNG MD, STRETCHER OPERATOR. 07/15/2005 11:3 5 AM EDT 07/15/2005 11:51 AM EDT us Eric Eubanks MD POC DOCKED CHOP Final Result HOSPITAL [facility] [address] [place] [address] documented in this encounter Visit Diagnoses Not on filedocumented in this encounter Care Teams Oracle Forms Developer Relationship Specialty Start Date End Date Fly Carpio MD PCP - General 12/15/06 10/10/22 Eric Patiño MD PCP - General 10/11/22 documented as of this encounter
--- OUTSIDE RECORDS SUMMARY | 2024-11-21 16:37 | XMS_ITS | Clinical Summary ---
Author Organization [facility] Address [address] [place] [phone] Phone Care Team Providers Care Cardiac Catheterization Technologist Name Role Phone Unavailable Primary Care Provider Unavailabl e Social History Tobacco Use Types Packs/Day Years Used Date Smoking Tobacco: Never Assessed Education Answer Date Recorded Are you interested in more education? Not on annalise e 08/01/2022 Are you concerned about learning? Not on file 08/01/2022 No 08/01/2022 No 08/01/2022 Digital Access Answer Date Recorded No 09/02/2022 No 09/02/2022 No 09/02/2022 Reliable internet access at home? Not on file 09/02/2022 Device with a working camera? Not on file Comments Unknown Sex and Gender Information Value Date Recorded Sex Assigned at Not on file Legal Sex Female 7:23 PM EST Gender Identity Not on file Sexual Orientation Not on file Plan of Treatment Health Maintenance Due Date Last Done Comments Adult Td,Tdap Booster 1989 DEPRESSION SCREENING 2001 SMOKING Hx and SMOKELESS TOB ACCO SCREENING 2002 HEPATITIS C SCREENING 07/25/2007 HIV ONE-TIME SCREENING (18-6 5 YEARS) 07/25/2007 PAP SMEAR 2010 COVID-19 VACCINE (2023-2 5 season) 2023 HEPATITIS A VACCINES Aged Out No long er eligible based on patient's age to complete this topic HIB VACCINES Aged Out No longer eligi ble based on patient's age to complete this topic MENINGOCOCCAL VACCINES (ACWY) Aged Out No longer eligible based on patient's age to complete this topic MENINGOCOCCAL VACCINES (B) Aged Out N o longer eligible based on patient's age to complete this topic PNEUMOCOCCAL VACCINES (0-49 years) Aged Out No longer eligible based on patient's age to complete this topic Medical Devices Not on file Additional Source Comments The information contained in this document represents components of the legal health record. It is not the complete legal health record.[facility]
--- OUTSIDE RECORDS SUMMARY | 2024-11-21 16:37 | XMS_ITS | Encounter Summary ---
Author Organization [facility] Address [address] [place] [address] Care Team Providers Care Agricultural Equipment Salesperson Name Role Phone Unavailable Primary Care Provider Unavailabl e Encounter Details Date Type Department Care Team (Late st Contact Info) Description 04/25/2022 Orders Only [facility] [address] [place] [id number] Social History Tobacco Use Types Packs/Day Years Used Date Smoking Tobacco: Never Assessed Comments Unknown Sex and Gender Information Value Date Recorded Sex Assigned at Not on file Legal Sex Female 11:16 PM EDT Gender Identity Not on file Sexual Orientation Not on file documented as of this encounter Plan of Treatment Not on file documented as of this encounter Procedures Procedure Name Priority Date/Time Associated Diagnosis Comments LABORATORY RESULTS EXTERNAL Routine 11/26/2021 12:00 AM EDT documented in this encounter Results * Laboratory Results External (11/26/2021 12:00 AM EDT) us Historical Provider LAB BLOOD ORDERABLES Halie l Result documented in this encounter Visit Diagnoses Not on filedocumented in this encounter
--- NOTE | 2024-11-21 16:38 | PC.NURSE ---
20g IV access established to left AC. LR initiated at this time.
[2024-11-21] MEDS: Lactated Ringers 1,000 ML 999 ML IV ×2 (16:40→17:08)
[2024-11-21 16:58] LABS: Appearance Urine Clear; Glucose Urine UA >=1000 mg/dL (Negative); PH 5.5 (5.0-9.0); Specific Gravity - Urine 1.010 (1.005-1.025); UMIC TRIGGER UACC YES
[2024-11-21 18:11] VITALS: BP 128/59; PULSE 84; RESP 18; TEMP 36.7; O2SAT 100
[2024-11-21 19:11] LABS: Glucose, Whole Blood 246 mg/dL (60-115)
[2024-11-21 21:05] LABS: Anion Gap 14 (12-20); Blood Urea Nitrogen 14 mg/dL (9-16); Calcium 8.8 mg/dL (8.4-10.2); Carbon Dioxide 23 mmol/L (22-29); Chloride 106 mmol/L (96-108); Creatinine Clr Calc Pharmacy 113.9; Estimated Glomerular Filt Rate > 60; Potassium 4.1 mmol/L (3.3-5.1); Sodium 139 mmol/L (135-145)
[2024-11-21 21:37] VITALS: BP 128/59; PULSE 84; RESP 18; TEMP 36.7; O2SAT 100
== END 2024-11-21 21:37 | disposition home or self-care (01) ==
PROVIDERS: Physician Assistant; Emergency Provider Emergency Medicine
DX: E10.65 Type 1 diabetes mellitus with hyperglycemia (principal); Z96.41 Presence of insulin pump (external) (internal); R11.2 Nausea with vomiting, unspecified; Z79.4 Long term (current) use of insulin
CPT/HCPCS: 36415; 80048; 80053; 81001; 82010; 82803; 82947; 83690; 83735; 84702; 85025; 96361; 96374; 99284; J2405; J7120